=== PATIENT | female | born 1985 | race African-American/Black ===

== ENCOUNTER 2017-08-03 09:22 | Emergency (ER) | payer OTHER ==
[~2017-08-03] VITALS: Ht 157.5 cm; Wt 122.0 kg
--- NOTE | 2017-08-03 09:30 | PHYS DOC ---
Past History Past Medical History: Hypotension Smoking: Non-smoker Adult General Chief Complaint Chief Complaint: elbow pain and injury HPI HPI 32-year-old right-handed female patient states she hit her left elbow against a wall 3 days ago and since then has had pain in her elbow getting worse with movement of her elbow. Patient denies focal neuro deficit and other injuries. She states she took [id number] pain medication without improvement of her pain. Review of Systems Review of Systems Constitutional: Denies fever or chills [] Eyes: Denies change in visual acuity, redness, or eye pain [] HENT: Denies nasal congestion or sore throat [] Respiratory: Denies cough or shortness of breath [] Cardiovascular: No additional information not addressed in HPI [] GI: Denies abdominal pain, nausea, vomiting, bloody stools or diarrhea [] : Denies dysuria or hematuria [] Musculoskeletal: Denies back pain , reports joint pain [] Integument: Denies rash or skin lesions [] Neurologic: Denies headache, focal weakness or sensory changes [] Endocrine: Denies polyuria or polydipsia [] All other systems were reviewed and found to be within normal limits, except as documented in this note. Physical Exam Physical Exam Constitutional: Well developed, well nourished, mild distress, non-toxic appearance. [] HENT: Normocephalic, atraumatic Eyes: PERRLA, EOMI, conjunctiva normal, no discharge. [] Neck: Normal range of motion, no tenderness, supple, no stridor. [] Cardiovascular:Heart rate regular rhythm, no murmur [] Lungs & Thorax: Bilateral breath sounds clear to auscultation [] Extremities: Left elbow without deformity or edema, mild tenderness and limited range of motion because of the pain, no neurovascular deficit Neurologic: Alert and oriented X 3, normal motor function, normal sensory function, no focal deficits noted. [] Psychologic: Affect normal, judgement normal, mood normal. [] EKG EKG [] Radiology/Procedures Radiology/Procedures [][address] [address] IMAGING REPORT Signed PATIENT: CHRISTY TREJO ACCOUNT: [id number] : 1985 LOCATION: ER AGE: 32 SEX: F EXAM STATUS: REG ER ORD. PHYSICIAN: JOSE ALEX MD REASON: injury PROCEDURE: ELBOW LEFT 3V History: Hit elbow this morning. Comparison: None. Findings: AP, lateral, and oblique views of the left elbow. No acute fracture or dislocation is identified. No joint effusion is seen. No focal soft tissue swelling is appreciated. Impression: No acute osseous traumatic injury identified. Electronically signed by: Julio Cesar Ang MD (08/03/2017 9:56 AM) [place] [id number] DICTATED AND SIGNED BY: JULIO CESAR ANG MD DATE: 08/03/17 0955 CC: JOSE ALEX MD; ALANA WONG APRN ~ Course & Med Decision Making Course & Med Decision Making Pertinent Imaging studies reviewed. (See chart for details) Evaluation of patient in ER showed 32-year-old female patient with injury to left elbow with unremarkable physical exam and x-ray. Judson wrap was applied and patient instructed to apply ice and follow up with her primary care physician. [] Dragon Disclaimer Dragon Disclaimer This electronic medical record was generated, in whole or in part, using a voice recognition dictation system. Departure Departure: Impression: Primary Impression: Strain of elbow, left Disposition: 01 HOME, SELF-CARE (at 1005) Condition: IMPROVED Referrals: ALANA WONG APRN (PCP) Patient Instructions: Elbow Contusion, Muscle Strain Additional Instructions: Apply ice Affected Area Follow-up with your primary care physician in 4-5 days Return to ER if not getting better Scripts Tramadol Hcl (ULTRAM) 50 Mg Tablet 50 MG PO PRN Q6HRS PRN for PAIN, #14 TAB Prov: JOSE ALEX MD 08/03/17 JOSE ALEX MD Aug 03, 2017 09:30
--- NOTE | 2017-08-03 09:58 | RAD ---
History: Hit elbow this morning. Comparison: None. Findings: AP, lateral, and oblique views of the left elbow. No acute fracture or dislocation is identified. No joint effusion is seen. No focal soft tissue swelling is appreciated. Impression: No acute osseous traumatic injury identified. Electronically signed by: Julio Cesar Staples MD (08/03/2017 9:56 AM) [facility]
[2017-08-03] MEDS: KETOROLAC 60 MG/2 ML VIAL. IM ONE (10:03)
[2017-08-03] MEDS ORDERED: TRAM-48 PO (10:08)
[2017-08-03 10:10] VITALS: BP 137/74
== END 2017-08-03 10:15 | disposition home or self-care (01) ==
LOC: ER 09:22
DX: S66.812A Strain of other specified muscles, fascia and tendons at wrist and hand level, left hand, initial encounter (principal); W22.01XA Walked into wall, initial encounter; Y93.89 Activity, other specified; Y99.8 Other external cause status; Y92.89 Other specified places as the place of occurrence of the external cause
CPT/HCPCS: 73080; 96372; 99284; J1885

== ENCOUNTER 2017-10-19 10:10 | Emergency (ER) | payer OTHER ==
[~2017-10-19] VITALS: Ht 157.5 cm; Wt 125.6 kg
[~2017-10-19 10:10] MED LIST: TRAM-48 PO
[2017-10-19] MEDS ORDERED: KETOROLAC 60 MG/2 ML VIAL. IM ONE (10:45)
[2017-10-19] MEDS ORDERED: ORPHENADRINE CITRATE 60 MG/2 ML VIAL. IM ONE (10:45)
[2017-10-19] MEDS ORDERED: METH4TAB2 PO (11:38)
[2017-10-19] MEDS ORDERED: CYCL-331 PO (11:38)
[2017-10-19] MEDS ORDERED: HYDR-971 PO (11:38)
--- NOTE | 2017-10-19 11:38 | PHYS DOC ---
Past History Past Medical History: Anxiety, Depression, Hypotension Past Surgical History: Coronary Bypass Surgery, Smoking: Non-smoker Alcohol Use: Occasionally Drug Use: None Adult General Chief Complaint Chief Complaint: BACK PAIN OR INJURY HPI HPI Patient is a 32 year old female who presents with complaining of low back pain for the last 3 days as a constant pain with radiation to back of her right thigh patient denies injury, history of back pain, fever and chills, urinary symptoms, urine and bowel incontinence, nausea and vomiting. She took Tylenol and ibuprofen without improvement of her pain. 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 Review of Systems Review of Systems Constitutional: Denies fever or chills [] Eyes: Denies change in visual acuity, redness, or eye pain [] HENT: Denies nasal congestion or sore throat [] Respiratory: Denies cough or shortness of breath [] Cardiovascular: No additional information not addressed in HPI [] GI: Denies abdominal pain, nausea, vomiting, bloody stools or diarrhea [] : Denies dysuria or hematuria [] Musculoskeletal: Denies back pain or joint pain [] Integument: Denies rash or skin lesions [] Neurologic: Denies headache, focal weakness or sensory changes [] Endocrine: Denies polyuria or polydipsia [] All other systems were reviewed and found to be within normal limits, except as documented in this note. Current Medications Current Medications Current Medications Medications (Trade) Dose Ordered Sig/Loc Start Time Stop Time Status Last Admin Dose Admin Ketorolac Tromethamine (Toradol Im) 60 mg 1X ONCE 10/19/17 10:45 10/19/17 10:46 DC 10/19/17 10:33 60 MG Orphenadrine Citrate (Norflex) 60 mg 1X ONCE 10/19/17 10:45 10/19/17 10:46 DC 10/19/17 10:33 60 MG Allergies Allergies Allergies Coded Allergies Type Severity Reaction Last Updated Verified cefaclor Allergy Intermediate hives 08/03/17 Yes prochlorperazine Allergy Intermediate makes me crazy 08/03/17 Yes Physical Exam Physical Exam Constitutional: Well developed, well nourished, no acute distress, non-toxic appearance. [] HENT: Normocephalic, atraumatic, bilateral external ears normal, oropharynx moist, no oral exudates, nose normal. [] Eyes: PERRLA, EOMI, conjunctiva normal, no discharge. [] Neck: Normal range of motion, no tenderness, supple, no stridor. [] Cardiovascular:Heart rate regular rhythm, no murmur [] Lungs & Thorax: Bilateral breath sounds clear to auscultation [] Abdomen: Bowel sounds normal, soft, no tenderness, no masses, no pulsatile masses. [] Skin: Warm, dry, no erythema, no rash. [] Back: No tenderness, no CVA tenderness. [] Extremities: No tenderness, no cyanosis, no clubbing, ROM intact, no edema. [] Neurologic: Alert and oriented X 3, normal motor function, normal sensory function, no focal deficits noted. [] Psychologic: Affect normal, judgement normal, mood normal. [] Current Patient Data Vital Signs Vital Signs Date Time Temp Pulse Resp B/P (MAP) Pulse Ox O2 Delivery O2 Flow Rate FiO2 10/19/17 10:22 98.3 78 18 99 Room Air Lab Results Laboratory Tests Test 10/19/17 10:10 POC Urine HCG, Qualitative hcg negative (Negative) EKG EKG [] Radiology/Procedures Radiology/Procedures [] Course & Med Decision Making Course & Med Decision Making Pertinent Labs studies reviewed. (See chart for details) Evaluation of patient in ER showed 32-year-old male patient with complaining of low back pain with radiation to back of right time for the last 3 days. Patient had morbid obesity and limited range of motion of lumbar spine patient treated in ER and felt better. Plan discharge patient home with diagnose of sciatica. Dragon Disclaimer Dragon Disclaimer This electronic medical record was generated, in whole or in part, using a voice recognition dictation system. Departure Departure: Impression: Primary Impression: Sciatica of right side Additional Impression: Morbid obesity with BMI of 50.0-59.9, adult Disposition: 01 HOME, SELF-CARE (at 1135) Condition: IMPROVED Referrals: ALANA WONG APRN (PCP) Patient Instructions: Sciatica Additional Instructions: Apply ice on your back Follow-up with your primary care physician in 3-5 days Return to ER if not getting better Scripts Hydrocodone Bit/Acetaminophen (NORCO 5-325 TABLET) 1 Each Tablet 1 TAB PO PRN Q6HRS PRN for PAIN for 14 Days, TAB 0 Refills Prov: KOUSHA,JOSE MD 10/19/17 Cyclobenzaprine Hcl (CYCLOBENZAPRINE HCL) 10 Mg Tablet 1 TAB PO TID, #20 TAB Prov: JOSE ALEX MD 10/19/17 Methylprednisolone (MEDROL) 4 Mg Tab.ds.pk 1 PKG PO UD, #1 PKG Prov: JOSE ALEX MD 10/19/17 Problem Qualifiers JOSE ALEX MD Oct 19, 2017 11:38
[2017-10-19 11:43] LABS: BILIRUBIN,URINE NEG (NEG); CLARITY,URINE CLEAR; COLOR,URINE YELLOW; GLUCOSE,URINE NEG (NEG); NITRITE,URINE NEG (NEG); UROBILINOGEN,URINE 0.2 mg/dL (0.2 mg/dL)
[2017-10-19 11:52] VITALS: BP 126/75
== END 2017-10-19 11:53 | disposition home or self-care (01) ==
LOC: ER 10:10
DX: M54.41 Lumbago with sciatica, right side (principal); E66.01 Morbid (severe) obesity due to excess calories; F41.9 Anxiety disorder, unspecified; F32.9 Major depressive disorder, single episode, unspecified; Z95.1 Presence of aortocoronary bypass graft; Z68.43 Body mass index [BMI] 50.0-59.9, adult; Z88.1 Allergy status to other antibiotic agents; Z88.8 Allergy status to other drugs, medicaments and biological substances
CPT/HCPCS: 81003; 81025; 96372; 99284; J1885; J2360

== ENCOUNTER 2017-12-18 18:58 | Emergency (ER) | payer OTHER ==
[~2017-12-18] VITALS: Ht 160 cm; Wt 121.6 kg
[~2017-12-18 18:58] MED LIST changes: +CYCL-331 PO; +HYDR-971 PO; +METH4TAB2 PO
[2017-12-18 19:59] LABS: BASO % 1 % (0-3); EOS # 0.1 x10^3/uL (0.0-0.7); EOS % 2 % (0-3); HEMATOCRIT 35.3 % (36.0-47.0); HEMOGLOBIN 11.2 g/dL (12.0-15.5); LYMPH # 1.8 x10^3/uL (1.0-4.8); LYMPH % 40 % (24-48); MEAN CORPUSCULAR HEMOGLOBIN 26 pg (25-35); MEAN CORPUSCULAR HGB CONC 32 g/dL (31-37); MEAN CORPUSCULAR VOLUME 82 fL (79-100); MONO # 0.4 x10^3/uL (0.0-1.1); MONO % 8 % (0-9); NEUT # 2.3 x10^3uL (1.8-7.7); NEUT % 50 % (31-73); PLATELET COUNT 210 x10^3/uL (140-400); RED BLOOD COUNT 4.29 x10^6/uL (3.50-5.40); RED CELL DISTRIBUTION WIDTH 15.3 % (11.5-14.5); WHITE BLOOD COUNT 4.6 x10^3/uL (4.0-11.0)
[2017-12-18] MEDS ORDERED: ONDANSETRON PF 4 MG/2 ML VIAL. IV ONE (20:00)
[2017-12-18] MEDS ORDERED: IV NORMAL SALINE 1,000ML 1,000 ML IV SCH (20:00)
[2017-12-18] MEDS ORDERED: KETOROLAC 30 MG/ML VIAL. IV ONE (20:00)
[2017-12-18 20:05] LABS: BILIRUBIN,URINE NEG (NEG); CLARITY,URINE CLOUDY; COLOR,URINE AMBER; GLUCOSE,URINE NEG (NEG)
[2017-12-18 20:06] LABS: BACTERIA,URINE FEW /HPF (0-FEW); NITRITE,URINE NEG (NEG); RBC,URINE TNTC /HPF (0-2); SQUAMOUS EPITHELIAL CELL,UR FEW /LPF; UROBILINOGEN,URINE 0.2 mg/dL (0.2 mg/dL); WBC,URINE OCC /HPF (0-4)
[2017-12-18 20:14] LABS: ALBUMIN 3.7 g/dL (3.4-5.0); CALCIUM 8.5 mg/dL (8.5-10.1); CREATININE 0.7 mg/dL (0.6-1.0); GFR 115.9; POTASSIUM 3.9 mmol/L (3.5-5.1); TOTAL BILIRUBIN 0.3 mg/dL (0.2-1.0); TOTAL PROTEIN 7.3 g/dL (6.4-8.2)
[2017-12-18] MEDS ORDERED: CONTRAST GIVEN MC PRN (20:45)
[2017-12-18] MEDS ORDERED: IOHEXOL 300 MG/ML 75 ML VIAL. IV ONE (21:00)
--- NOTE | 2017-12-18 21:10 | RAD ---
CT Head without contrast 12/18/2017 Clinical Indication: Head injury headache Comparison: None Technique: Multiple CT images of the head were obtained without contrast. *One or more of the following individualized dose reduction techniques were utilized for this examination: 1. Automated exposure control. 2. Adjustment of the mA and/or kV according to patient size. 3. Use of iterative reconstruction technique. Findings: Ventricles and subarachnoid spaces are normal in size and configuration for age. No acute intracranial hemorrhage or extra-axial fluid collection. The sykes-white matter interfaces are maintained. No midline shift. The basal cisterns are patent. Posterior left maxillary sinus mucosal retention cyst. Impression: No acute intracranial hemorrhage. Electronically signed by: Mariusz Ruggiero MD (12/18/2017 9:07 PM) [facility]
--- NOTE | 2017-12-18 21:18 | RAD ---
CT abdomen and pelvis with contrast 12/18/2017 CLINICAL INDICATION: Right upper quadrant abdominal pain radiating to the back. COMPARISON: None. TECHNIQUE: Multiple CT images of the abdomen and pelvis were obtained following intravenous and ministration of 75 mL Omnipaque 300 *One or more of the following individualized dose reduction techniques were utilized for this examination: 1. Automated exposure control. 2. Adjustment of the mA and/or kV according to patient size. 3. Use of iterative reconstruction technique. FINDINGS: There is a lateral right breast nodule measuring 1.5 cm series 2/image 15 possible nodule in the superior left breast measuring 0.9 cm series 2/image 16. Heart size is normal. Lung bases are clear. Limited evaluation of the abdominal and pelvic viscera due to poor contrast and opacification. Liver, spleen, adrenal glands, gallbladder, pancreas and kidneys are grossly unremarkable. No hydronephrosis. Abdominal aorta normal in caliber. Small and large bowel loops are normal in caliber without obstruction. Appendix is normal in appearance. No abdominal free fluid. No pneumoperitoneum. A bladder is decompressed. Uterus and adnexa grossly unremarkable. There are no destructive osseous lesions. IMPRESSION: 1. Limited examination due to very poor contrast opacification which may be due to poor contrast timing or body habitus. Clinical correlation for possible extravasation of contrast at IV injection site is recommended. 2. No CT evidence of acute abdominal or pelvic process. 3. Bilateral breast nodules, indeterminate. Correlation with mammography is recommended. Electronically signed by: Mariusz Ruggiero MD (12/18/2017 9:14 PM) [facility]
[2017-12-18 21:30] VITALS: BP 122/65
[2017-12-18] MEDS ORDERED: ORPH-16 PO (21:48)
[2017-12-18] MEDS ORDERED: DICL50TA4 PO (21:48)
[2017-12-18] MEDS ORDERED: TRAM50TA PO (21:48)
--- NOTE | 2017-12-18 21:49 | PHYS DOC ---
Past History Past Medical History: Anxiety Past Surgical History: , Other Smoking: Non-smoker Alcohol Use: None Drug Use: None Adult General Chief Complaint Chief Complaint: HEAD INJURY/TRAUMA HPI HPI Patient is a 32-year-old female presents with complaint of right sided flank/ back pain that has been present for several months. Patient states that it is always painful and is not exacerbated or improved with food. She states that the pain is worsened with certain movements and with deep breathing. She describes the pain at times is like a deep ache and at other times is sharp and stabbing. Patient states that she had been worked up for gallbladder not too long ago and had a gallbladder ultrasound. She states that she was told that the ultrasound was normal however. Patient also indicates that a ceiling tile had fallen and struck her on the head earlier today. She indicates that she had no loss of consciousness but afterwards had a headache and has had some dizziness and nausea. She denies any vomiting. Patient rates her pain to be an 8 out of 10. She states that nothing is improving her pain. Review of Systems Review of Systems Constitutional: Denies fever or chills [] Eyes: Denies change in visual acuity, redness, or eye pain [] Respiratory: Denies cough or shortness of breath [] Cardiovascular: No additional information not addressed in HPI [] GI: Complains of right-sided flank pain. Admits to nausea without vomiting or diarrhea [] : Denies dysuria or hematuria [] Musculoskeletal: Complains of right-sided back pain in the mid to lower back region.[] Integument: Denies rash or skin lesions [] Neurologic: Denies headache, focal weakness or sensory changes [] All other systems were reviewed and found to be within normal limits, except as documented in this note. Current Medications Current Medications Current Medications Medications (Trade) Dose Ordered Sig/Loc Start Time Stop Time Status Last Admin Dose Admin Info (Do NOT chart on this entry -- for MONITORING) 1 each PRN DAILY PRN 12/18/17 20:45 12/20/17 20:44 Iohexol (Omnipaque 300 Mg/ml) 75 ml 1X ONCE 12/18/17 21:00 12/18/17 21:01 DC 12/18/17 20:44 75 ML Ketorolac Tromethamine (Toradol 30mg Vial) 30 mg 1X ONCE 12/18/17 20:00 12/18/17 20:01 DC 12/18/17 19:52 30 MG Ondansetron HCl (Zofran) 4 mg 1X ONCE 12/18/17 20:00 12/18/17 20:01 DC 12/18/17 19:51 4 MG Sodium Chloride 1,000 ml @ 1,000 mls/hr Q1H 12/18/17 20:00 12/18/17 20:59 DC 12/18/17 19:51 1,000 MLS/HR Allergies Allergies Allergies Coded Allergies Type Severity Reaction Last Updated Verified cefaclor Allergy Intermediate hives 08/03/17 Yes prochlorperazine Allergy Intermediate makes me crazy 08/03/17 Yes Physical Exam Physical Exam Constitutional: Well developed, well nourished, no acute distress, non-toxic appearance. [] HENT: Normocephalic, atraumatic, bilateral external ears normal, oropharynx moist, no oral exudates, nose normal. [] Eyes: PERRLA, EOMI, conjunctiva normal, no discharge. [] Neck: Normal range of motion, no tenderness, supple. [] Cardiovascular:Heart rate regular rhythm [] Lungs & Thorax: Bilateral breath sounds clear to auscultation [] Abdomen: Bowel sounds normal, soft, no tenderness. [] Skin: Warm, dry, no erythema, no rash. [] Back: There is tenderness to palpation with palpable spasm noted on the right hand side paraspinal musculature in the thoraco-lumbar junction. [] Extremities: No tenderness, no cyanosis, no clubbing, ROM intact, no edema. [] Neurologic: Alert and oriented X 3, normal motor function, normal sensory function, no focal deficits noted. [] Current Patient Data Vital Signs Vital Signs Date Time Temp Pulse Resp B/P (MAP) Pulse Ox O2 Delivery O2 Flow Rate FiO2 12/18/17 19:08 98.0 60 20 100 Room Air Lab Results Laboratory Tests Test 12/18/17 19:35 12/18/17 19:45 12/18/17 19:47 White Blood Count 4.6 x10^3/uL (4.0-11.0) Red Blood Count 4.29 x10^6/uL (3.50-5.40) Hemoglobin 11.2 g/dL (12.0-15.5) L Hematocrit 35.3 % (36.0-47.0) L Mean Corpuscular Volume 82 fL (79-100) Mean Corpuscular Hemoglobin 26 pg (25-35) Mean Corpuscular Hemoglobin Concent 32 g/dL (31-37) Red Cell Distribution Width 15.3 % (11.5-14.5) H Platelet Count 210 x10^3/uL (140-400) Neutrophils (%) (Auto) 50 % (31-73) Lymphocytes (%) (Auto) 40 % (24-48) Monocytes (%) (Auto) 8 % (0-9) Eosinophils (%) (Auto) 2 % (0-3) Basophils (%) (Auto) 1 % (0-3) Neutrophils # (Auto) 2.3 x10^3uL (1.8-7.7) Lymphocytes # (Auto) 1.8 x10^3/uL (1.0-4.8) Monocytes # (Auto) 0.4 x10^3/uL (0.0-1.1) Eosinophils # (Auto) 0.1 x10^3/uL (0.0-0.7) Basophils # (Auto) 0.0 x10^3/uL (0.0-0.2) Sodium Level 138 mmol/L (136-145) Potassium Level 3.9 mmol/L (3.5-5.1) Chloride Level 102 mmol/L (98-107) Carbon Dioxide Level 30 mmol/L (21-32) Anion Gap 6 (6-14) Blood Urea Nitrogen 9 mg/dL (7-20) Creatinine 0.7 mg/dL (0.6-1.0) Estimated GFR (Cockcroft-Gault) 115.9 BUN/Creatinine Ratio 13 (6-20) Glucose Level 89 mg/dL (70-99) Calcium Level 8.5 mg/dL (8.5-10.1) Total Bilirubin 0.3 mg/dL (0.2-1.0) Aspartate Amino Transferase (AST) 17 U/L (15-37) Alanine Aminotransferase (ALT) 22 U/L (14-59) Alkaline Phosphatase 55 U/L (46-116) Total Protein 7.3 g/dL (6.4-8.2) Albumin 3.7 g/dL (3.4-5.0) Albumin/Globulin Ratio 1.0 (1.0-1.7) Lipase 126 U/L (73-393) Urine Collection Type Unknown Urine Color Love Urine Clarity Cloudy Urine pH 6.0 Urine Specific Holl[place] >=1.030 Urine Protein 30 mg/dl (NEG-TRACE) Urine Glucose (UA) Neg mg/dL (NEG) Urine Ketones (Stick) Trace mg/dL (NEG) Urine Blood Large (NEG) Urine Nitrite Neg (NEG) Urine Bilirubin Neg (NEG) Urine Urobilinogen Dipstick 0.2 mg/dL (0.2 mg/dL) Urine Leukocyte Esterase Neg (NEG) Urine RBC Tntc /HPF (0-2) Urine WBC Occ /HPF (0-4) Urine Squamous Epithelial Cells Few /LPF Urine Bacteria Few /HPF (0-FEW) Urine Mucus Slight /LPF POC Urine HCG, Qualitative hcg negative (Negative) EKG EKG [] Radiology/Procedures Radiology/Procedures [] Impressions: CT abdomen and pelvis with contrast 12/18/2017 CLINICAL INDICATION: Right upper quadrant abdominal pain radiating to the back. COMPARISON: None. TECHNIQUE: Multiple CT images of the abdomen and pelvis were obtained following intravenous and ministration of 75 mL Omnipaque 300 *One or more of the following individualized dose reduction techniques were utilized for this examination: 1. Automated exposure control. 2. Adjustment of the mA and/or kV according to patient size. 3. Use of iterative reconstruction technique. FINDINGS: There is a lateral right breast nodule measuring 1.5 cm series 2/image 15 possible nodule in the superior left breast measuring 0.9 cm series 2/image 16. Heart size is normal. Lung bases are clear. Limited evaluation of the abdominal and pelvic viscera due to poor contrast and opacification. Liver, spleen, adrenal glands, gallbladder, pancreas and kidneys are grossly unremarkable. No hydronephrosis. Abdominal aorta normal in caliber. Small and large bowel loops are normal in caliber without obstruction. Appendix is normal in appearance. No abdominal free fluid. No pneumoperitoneum. A bladder is decompressed. Uterus and adnexa grossly unremarkable. There are no destructive osseous lesions. IMPRESSION: 1. Limited examination due to very poor contrast opacification which may be due to poor contrast timing or body habitus. Clinical correlation for possible extravasation of contrast at IV injection site is recommended. 2. No CT evidence of acute abdominal or pelvic process. 3. Bilateral breast nodules, indeterminate. Correlation with mammography is recommended. Electronically signed by: Mariusz Ruggiero MD (12/18/2017 9:14 PM) [facility] CT of the head without contrast demonstrates no acute intracranial abnormalities. Course & Med Decision Making Course & Med Decision Making Pertinent Labs and Imaging studies reviewed. (See chart for details) [] Dragon Disclaimer Dragon Disclaimer This electronic medical record was generated, in whole or in part, using a voice recognition dictation system. Departure Departure: Impression: Primary Impression: Lower back pain Additional Impression: Muscle spasm of back Disposition: HOME, SELF-CARE Condition: STABLE Referrals: ALANA WONG APRN (PCP) Patient Instructions: Back Pain, Adult, Muscle Cramps Scripts Tramadol Hcl (TRAMADOL HCL) 50 Mg Tablet 50 MG PO PRN Q6HRS PRN for PAIN, #15 TAB Prov: LATISHA WATKINS Jr. DO 12/18/17 Orphenadrine Citrate (ORPHENADRINE CITRATE) 100 Mg Tablet.er 1 TAB PO BID PRN for MUSCLE SPASMS, #20 TAB Prov: LATISHA WATKINS Jr. DO 12/18/17 Diclofenac Sodium (DICLOFENAC SODIUM) 50 Mg Tablet.dr 1 TAB PO BID PRN for PAIN, #20 TAB Prov: LATISHA WATKINS Jr. DO 12/18/17 Problem Qualifiers Primary Impression: Lower back pain Chronicity: chronic Back pain laterality: right Sciatica presence: without sciatica Qualified Codes: M54.5 - Low back pain; G89.29 - Other chronic pain LATISHA WATKINS Jr. DO Dec 18, 2017 21:49
== END 2017-12-18 22:05 | disposition home or self-care (01) ==
LOC: ER 18:58
DX: M62.830 Muscle spasm of back (principal); G89.29 Other chronic pain; M54.5 Low back pain; F41.9 Anxiety disorder, unspecified; Z98.890 Other specified postprocedural states; Z88.1 Allergy status to other antibiotic agents; Z88.8 Allergy status to other drugs, medicaments and biological substances
CPT/HCPCS: 36415; 70450; 74177; 80053; 81001; 81025; 83690; 85025; 96361; 96374; 96375; 99285; J1885; J2405; Q9967; J7030

== ENCOUNTER 2020-02-25 18:57 | Emergency (ER) | payer MEDICAID, OTHER ==
[~2020-02-25] VITALS: Ht 160 cm; Wt 130.0 kg
[~2020-02-25 18:57] MED LIST changes: +DICL50TA4 PO; +HYDR-3165 PO; -HYDR-971 PO; +ORPH-16 PO; +TRAM50TA PO
[2020-02-25 19:12] VITALS: BP 143/90
--- NOTE | 2020-02-25 19:48 | PHYS DOC ---
Past History Past Medical History: Anxiety, Asthma Past Surgical History: , Other Additional Past Surgical Histo: open heart surgery at Smoking: Non-smoker Alcohol Use: Occasionally Drug Use: None General Adult EDM: Chief Complaint: SHORTNESS OF BREATH HPI: HPI: Patient is a 34-year-old female who presents with nonproductive cough, fatigue, diarrhea and shortness of breath. Patient states that she was tested for Covid on the , and was negative. Patient reports she has been having diarrhea since yesterday. Patient was seen by her PCP on the she was prescribed Z- Mando, prednisone and inhaler. Patient states "I just feel like I been getting worse". Patient denies fever or any recent exposure to Covid. Review of Systems: Review of Systems: Constitutional: Denies fever or chills Eyes: Denies change in visual acuity HENT: Reports nasal congestion, denies sore throat Respiratory: Reports nonproductive cough and shortness of breath Cardiovascular: Denies chest pain or edema GI: Denies abdominal pain, nausea, vomiting, bloody stools. Reports diarrhea since yesterday : Denies dysuria Musculoskeletal: Denies back pain or joint pain Integument: Denies rash Neurologic: Denies headache, focal weakness or sensory changes Endocrine: Denies polyuria or polydipsia Lymphatic: Denies swollen glands Psychiatric: Denies depression or anxiety Allergies: Allergies: Allergies Coded Allergies Type Severity Reaction Last Updated Verified cefaclor Allergy Intermediate hives 08/03/17 Yes prochlorperazine Allergy Intermediate makes me crazy 08/03/17 Yes Physical Exam: PE: Constitutional: Well developed, well nourished, no acute distress, non-toxic appearance. [] HENT: Normocephalic, atraumatic, bilateral external ears normal, oropharynx moist, no oral exudates, nose normal. [] Eyes: PERRLA, EOMI, conjunctiva normal, no discharge. [] Neck: Normal range of motion, no tenderness, supple, no stridor. [] Cardiovascular:Heart rate regular rhythm, no murmur [] Lungs & Thorax: Bilateral breath sounds clear to auscultation [] Abdomen: Bowel sounds normal, soft, no tenderness, no masses, no pulsatile masses. [] Skin: Warm, dry, no erythema, no rash. [] Back: No tenderness, no CVA tenderness. [] Extremities: No tenderness, no cyanosis, no clubbing, ROM intact, no edema. [] Neurologic: Alert and oriented X 3, normal motor function, normal sensory function, no focal deficits noted. [] Psychologic: Affect normal, judgement normal, mood normal. [] Current Patient Data: Vital Signs: Vital Signs Date Time Temp Pulse Resp B/P (MAP) Pulse Ox O2 Delivery O2 Flow Rate FiO2 02/25/20 19:12 98.1 74 16 143/90 (107) 98 Room Air EKG: EKG: Sinus Rhythum,Normal EKG[] Radiology/Procedures: Radiology/Procedures: []Single view chest dated 02/25/2020: No comparison available. Clinical Indication: Shortness breath. Findings: Single upright portable exam of the chest was performed. Heart size and mediastinal contours are within normal limits given technique. The lungs are clear without evidence of focal consolidation. Vascular interstitium is within normal limits. Impression:: Negative portable chest. Electronically signed by: Julio Cesar Hayden MD (02/25/2020 8:20 PM) [id number] Heart Score: Risk Factors: Risk Factors: DM, Current or recent (<one month) smoker, HTN, HLP, family history of CAD, obesity. Risk Scores: Score 0 - 3: 2.5% MACE over next 6 weeks - Discharge Home Score 4 - 6: 20.3% MACE over next 6 weeks - Admit for Clinical Observation Score 7 - 10: 72.7% MACE over next 6 weeks - Early Invasive Strategies Course & Med Decision Making: Course & Med Decision Making Pertinent Labs and Imaging studies reviewed. (See chart for details) []Patient is a 34-year-old female who presents with nonproductive cough, fatigue, diarrhea and shortness of breath. Patient states that she was tested for Covid on the , and was negative. Patient reports she has been having diarrhea since yesterday. Patient was seen by her PCP on the she was prescribed Z-Mando, prednisone and inhaler. Patient states "I just feel like I been getting worse". Patient denies fever or any recent exposure to Covid. Patient's vitals all within normal limits. 98% on room air. Lungs are clear bilaterally. No wheezing noted.CXR negative. EKG normal sinus rhythm. Patient states she is feeling better after fluids. Patient requesting work note for 2 days. Take ibuprofen and Tylenol for discomfort. Patient is hemodynamically stable and able to ambulate upon discharge. 1.Viral Syndrome. Bernardo Disclaimer: Bernardo Disclaimer: This electronic medical record was generated, in whole or in part, using a voice recognition dictation system. Departure Departure: Impression: Primary Impression: Viral syndrome Disposition: 01 DC HOME SELF CARE/HOMELESS Condition: IMPROVED Referrals: ALANA WONG APRN (PCP) Patient Instructions: Cough, Adult, [id number] Additional Instructions: You are seen in the emergency room tonight for cough and shortness of breath. Your chest x-ray was negative. Continue taking [id number] ibuprofen and Tylenol for discomfort. Follow-up with your primary care physician for further concerns. If you have worsening symptoms please return to the emergency room EMERGENCY DEPARTMENT GENERAL DISCHARGE INSTRUCTIONS Thank you for coming to [facility] (ED) today and trusting us with you care. We trust that you had a positivie experience in our Emergency Department. If you wish to speak to the department management, you may call the director at [phone]. YOUR FOLLOW UP INSTRUCTIONS ARE FOLLOWS: 1. Do you have a private Doctor? If you do not have a private doctor, please ask for a resource list of physicians or clinics that may be able to assist you with follow up care. 2. The Emergency Physician has interpreted your x-rays. The X-Ray specialist will also review them. If there is a change in the findings, you will be notified in 48 hours when at all possible. 3. A lab test or culture has been done, your results will be reviewed and you will be notified if you need a change in treatment. ADDITIONAL INSTRUCTIONS AND INFORMATION: 1. Your care today has been supervised by a physician who is specially trained in emergency care. Many problems require more than one evaluation for a complete diagnosis and treatment. We recommend that you schedule your follow up appointment as recommended to ensure complete treatment of you illness or injury. If you are unable to obtain follow up care and continue to have a problem, or if your condition worsens, we recommend that you return to the ED. 2. We are not able to safely determine your condition over the phone nor are we able to give sound medical advice over the phone. For these safety reasons, if you call for medical advice we will ask you to come to the ED for further evaluation. 3. If you have any questions regarding these discharge instructions please call the ED at [phone]. SAFETY INFORMATION: In the interest of safety, wellness, and injury prevention; we encourage you to wear your sealbelt, if you smoke; quite smoking, and we encourage family to use a protective helmet for bicycling and other sporting events that present an increased risk for head injury. IF YOUR SYMPTOMS WORSEN OR NEW SYMPTOMS DEVELOP, OR YOU HAVE CONCERNS ABOUT YOUR CONDITION; OR IF YOUR CONDITION WORSENS WHILE YOU ARE WAITING FOR YOUR FOLLOW UP APPOINTMENT; EITHER CONTACT YOUR PRIMARY CARE DOCTOR, THE PHYSICIAN WHOSE NAME AND NUMBER YOU WERE GIVEN, OR RETURN TO THE ED IMMEDIATELY. LUIS HILLIARD APRN Feb 25, 2020 19:48
[2020-02-25] MEDS ORDERED: IV NORMAL SALINE 1,000ML 1,000 ML IV ONE (20:00)
--- NOTE | 2020-02-25 20:23 | RAD ---
Single view chest dated 02/25/2020: No comparison available. Clinical Indication: Shortness breath. Findings: Single upright portable exam of the chest was performed. Heart size and mediastinal contours are with in normal limits given technique. The lungs are clear without evidence of focal consolidation. Vascul ar interstitium is within normal limits. Impression:: Negative portable chest. Electronically signed by: Julio Cesar Hayden MD (02/25/2020 8:20 PM) [id number]
[2020-02-25 20:39] LABS: BACTERIA,URINE 0 /HPF (0-FEW); BILIRUBIN,URINE NEG (NEG); CLARITY,URINE CLEAR; COLOR,URINE YELLOW; GLUCOSE,URINE NEG (NEG); NITRITE,URINE NEG (NEG); RBC,URINE 0 /HPF (0-2); UROBILINOGEN,URINE 0.2 mg/dL (0.2 mg/dL); WBC,URINE 0 /HPF (0-4)
[2020-02-25 22:41] LABS: BASO % 0 % (0-3); EOS % 0 % (0-3); HEMATOCRIT 35.9 % (36.0-47.0); HEMOGLOBIN 11.4 g/dL (12.0-15.5); LYMPH # 1.1 x10^3/uL (1.0-4.8); LYMPH % 11 % (24-48); MEAN CORPUSCULAR HEMOGLOBIN 27 pg (25-35); MEAN CORPUSCULAR HGB CONC 32 g/dL (31-37); MEAN CORPUSCULAR VOLUME 83 fL (79-100); MONO # 0.3 x10^3/uL (0.0-1.1); MONO % 3 % (0-9); NEUT # 9.3 x10^3uL (1.8-7.7); NEUT % 86 % (31-73); PLATELET COUNT 250 x10^3/uL (140-400); RED BLOOD COUNT 4.32 x10^6/uL (3.50-5.40); RED CELL DISTRIBUTION WIDTH 15.4 % (11.5-14.5); WHITE BLOOD COUNT 10.8 x10^3/uL (4.0-11.0)
[2020-02-25 22:45] LABS: CALCIUM 8.2 mg/dL (8.5-10.1); CREATININE 0.6 mg/dL (0.6-1.0); GFR 136.9; POTASSIUM 4.2 mmol/L (3.5-5.1)
--- NOTE | 2020-02-26 12:14 | EKG ---
[address] [address] Test Date: 2020-02-25 Test Time: 20:01:29 Pat Name: CHRISTY TREJO Department: Room: Gender: F Vending Machine Refiller: : [id number] Requested By: LUIS HILLIARD Order Number: [id number] Reading MD: Measurements Intervals [place] Rate: 62 P: 31 AR: 126 QRS: 31 QRSD: 80 T: 34 QT: 386 QTc: 394 Interpretive Statements SINUS RHYTHM NORMAL ECG RI6.02 No previous ECG available for comparison
== END 2020-02-25 22:35 | disposition home or self-care (01) ==
LOC: ER 18:57
DX: B34.9 Viral infection, unspecified (principal); J45.909 Unspecified asthma, uncomplicated; Z88.1 Allergy status to other antibiotic agents; Z88.8 Allergy status to other drugs, medicaments and biological substances
CPT/HCPCS: 36415; 71045; 80048; 81001; 81025; 85025; 93005; 96360; 99285; J7030